=== PATIENT | male | born 2000 | race Caucasian/White ===

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

== ENCOUNTER 2021-12-18 11:25 | Outpatient (CLI) | payer OTHER, SELFPAY ==
--- NOTE | ~2021-12-18 | XR_ITS ---
XR finger 1st LT min 2V DATE: 12/18/2021 11:45 INDICATION: Nodule at base of thumb for 2 months TECHNIQUE: 3 views COMPARISON: None FINDINGS: No fracture or dislocation, periosteal reaction or bone destruction, joint space narrowing, erosive change, subcutaneous emphysema or abnormal soft tissue calcification. IMPRESSION: Negative Reviewed, dictated and finalized at location A. IMPRESSION: Negative
== END 2021-12-18 11:26 | disposition home or self-care (01) ==
LOC: CHSIMG 11:29
PROVIDERS: PCP Family Medicine; Visit Provider Family Medicine
DX: R22.32 Localized swelling, mass and lump, left upper limb (principal)
CPT/HCPCS: 73140

== ENCOUNTER 2021-12-28 08:24 | Outpatient (CLI) | payer OTHER, SELFPAY ==
--- NOTE | ~2021-12-28 | US_ITS ---
EXAMINATION: US right upper quadrant DATE: 12/28/2021 09:51 INDICATION: Elevated liver function tests TECHNIQUE: Multiple grayscale and Doppler ultrasound images of the abdomen were obtained. COMPARISON: None available FINDINGS: Bowel gas obscures visualization of the pancreas. The visualized portions of the pancreas a re unremarkable. The liver is normal with normal echogenicity and echotexture. No surface nodularity. Normal hepatopetal flow in the main portal vein. The gallbladder is normal with no abnormal wall thi ckening, pericholecystic fluid or stones. The normal common bile duct measures 3 mm. There was no son ographic Orellana sign. IMPRESSION: 1. Normal sonographic study of the gallbladder. Reviewed, dictated and finalized at location B.
== END 2021-12-28 08:25 | disposition home or self-care (01) ==
LOC: CHSIMG 08:26
PROVIDERS: PCP Family Medicine; Visit Provider Family Medicine
DX: R74.8 Abnormal levels of other serum enzymes (principal)
CPT/HCPCS: 76705

== ENCOUNTER 2024-10-01 22:16 | Emergency (ER) | payer OTHER, SELFPAY ==
--- NOTE | ~2024-10-01 | CT_ITS ---
EXAMINATION: CT abdomen pelvis w con DATE: 10/01/2024 23:24 INDICATION: EPIGSATRIC PAIN WITH DIARRHEA TECHNIQUE: Computed tomography (CT) of the abdomen and pelvis was performed with 100 mL Omnipaque-350 intravenous contrast. Automated exposure control and iterative reconstruction technique were employe d. The dose-length product was 928.85 mGy-cm. COMPARISON: None. FINDINGS: Lower thorax: Unremarkable Liver: Normal. Biliary/Gallbladder: Gallbladder is normal. No bile duct dilation. Pancreas: No mass or duct dilation. Spleen: Normal. Adrenals:No mass. Kidneys: No suspicious mass, obstructing stone, or hydronephrosis. GI tract: No small or large bowel dilation. Short segment intussusception in the jejunum, without ass ociated mass or other definable lead point. Mild ileal wall edema. Fluid-filled colon. Normal appendi x. Mesentery/Peritoneum: No ascites, mass, or free air. Retroperitoneum: No mass. Pelvis: Pelvic organs are within normal limits. Soft Tissues: Soft tissues and body wall unremarkable. Bones: No acute osseous finding. IMPRESSION: Short segment small bowel intussusception, without a defined lead point, a finding that is typically transient and can be considered physiologic unless associated with symptoms. Ileal wall edema, may reflect infectious or inflammatory enteritis. If there is a history of vasculit is consider ischemia. Fluid-filled colon, as can be seen with diarrheal illness. Reviewed, dictated and finalized at location K. IMPRESSION: Short segment small bowel intussusception, without a defined lead point, a find ing that is typically transient and can be considered physiologic unless associ ated with symptoms. Ileal wall edema, may reflect infectious or inflammatory enteritis. If there is a history of vasculitis consider ischemia. Fluid-filled colon, as can be seen with diarrheal illness.
[2024-10-01 22:17] VITALS: BP 133/99; PULSE 80; RESP 18; TEMP 36.5; O2SAT 94
--- OUTSIDE RECORDS SUMMARY | 2024-10-01 22:17 | XMS_ITS | Clinical Summary ---
Author Organization [facility] Address [address] [place] [address] Care Team Providers Care C.O.D. 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 Gender Identity Not on file Sexual Orientation Not on file Plan of Treatment Health Maintenance Due Date Last Done Comments Annual Physical 2004 HPV Vaccines (1 - Male 3-dos e series) 2016 Meningococcal B Vaccine (1 o f 2 - Standard) 2017 Hepatitis C 2019 DTaP, Tdap and Td Vaccines ( 1 - Tdap) 2020 Hepatitis B Vaccines (1 of 3 - 19+ 3-dose series) 2020 COVID-19 Vaccine ( - 2023-2 5 season) 2024 Meningococcal Vaccine Aged Out No andreas gregg eligible based on patient's age to complete this topic Pneumococcal Vaccine: Pediat rics (0 to 5 Years) and At-Risk Patients (6 to 49 Years) Aged Out No longer eligible b ased on patient's age to complete this topic RSV Immunizations Under 20 Months Aged Out No longer eligible based on patient's age to complete this topic
--- OUTSIDE RECORDS SUMMARY | 2024-10-01 22:17 | XMS_ITS | Patient Health Record ---
Author Organization [facility] Planning Address [address] [address] [address] [place] [address] Support Name Relationship Address Phone Jesse Garcia Guarantor Unknown [phone] Reason For Referral No Information Medications Medication SIG (Take, Route, Frequency, Duration) Notes Start Date End Date Status traZODone HCl 50 MG take 1 tablet (50MG) by oral route every day at bedtime Oral ([facility]) Active Citalopram Hydrobromide 20 MG take 1.5 Tablet (30MG) by oral route every morning Oral ([facility]) Active QUEtiapine Fumarate 200 MG take 1 tablet (200MG) by oral route every day at bedtime Oral ([facility]) Active Orapred 15 MG/5ML take 2 teaspoon by O ral route every 12 hours for 5 days Oral ([facility]) 05/05/2012 Active guanFACINE HCl 1 MG take 1 tablet (1MG) by oral route 3 times every day Oral ([facility]) Active Focalin XR 20 MG take 1 capsule (20MG ) by oral route every day in the morning Oral ([facility]) Active Immunizations Vaccine Route Administration Date Status Comme nts VFC IPV Unknown 2001 Administered Status:Compl eted VFC IPV Unknown 2001 Administered Status:Compl eted VFC IPV Unknown 02/02/2002 Administered Status:Compl eted VFC IPV Unknown 10/25/2006 Administered Status:Compl eted VFC Varivax Unknown 07/24/2002 Administered Status:Comp leted VFC Varivax Unknown 03/23/2011 Administered Status:Comp leted VFC Daptacel Unknown 2001 Administered Status:Com pleted VFC Daptacel Unknown 2001 Administered Status:Com pleted VFC Daptacel Unknown 02/02/2002 Administered Status:Com pleted VFC Daptacel Unknown 07/24/2002 Administered Status:Com pleted VFC Daptacel Unknown 10/25/2006 Administered Status:Com pleted Pneumococcal conjugate PCV 7 Unknown 07/24/2002 Administered Status:Completed Non-VFC MMR II Unknown 07/24/2002 Administered Status:C ompleted Non-VFC MMR II Unknown 10/25/2006 Administered Status:C ompleted Non VFC Engerix B-Peds Unknown 2001 Administered Status:Completed Non VFC Engerix B-Peds Unknown 2001 Administered Status:Completed Non VFC Engerix B-Peds Unknown 07/24/2002 Administered Status:Completed X Hiberix Unknown 2001 Administered Status:Compl eted X Hiberix Unknown 2001 Administered Status:Compl eted X Hiberix Unknown 07/24/2002 Administered Status:Compl eted Plan Of Treatment No Information Medical (General) History Surgical History Surgery Date(Month/Year) Tonsillectomy 2009 Adenoidectomy 2009 Circumcision 2001
[2024-10-01 22:39] LABS: Hematocrit 48.8 % (40.0-54.0); Hemoglobin 16.7 g/dL (14.0-18.0); Mean Corpuscular HGB Conc 34.2 g/dL (32-36); Mean Corpuscular Hemoglobin 28.5 pg (27.0-31.0); Mean Corpuscular Volume 83.3 fL (78.0-102.0); Mean Platelet Volume 10.4 fl (8.7-11.0); Platelet Count Result 382 K/mm3 (150-420); Red Blood Count 5.86 M/mm3 (4.70-6.10); Red Cell Distribution Width 12.5 % (11.6-14.4)
[2024-10-01] MEDS: SODIUM CHLORIDE 0.9% IV 1,000 ML 999 ML IV CONT (22:41)
[2024-10-01] MEDS: PANTOPRAZOLE SODIUM IV 40 MG VIAL IV PUSH (22:42)
[2024-10-01 22:43] LABS: White Blood Count 26.1 K/mm3 (4.8-10.8)
[2024-10-01] MEDS: KETOROLAC 30 MG/ML VIAL (*BKC) IV PUSH (22:43)
[2024-10-01 22:47] LABS: Band Neutrophils Percent 0 % (0-6); Basophils Percent Manual 0 % (0-1); Eosinophils Absolute Manual 0.26 K/mm3 (0.02-0.50); Eosinophils Percent Manual 1 % (1-6); Lymphocytes Absolute Manual 1.56 K/mm3 (1.1-4.5); Lymphocytes Percent Manual 6 % (18-44); Monocytes Absolute Manual 0.78 K/mm3 (0.1-0.90); Monocytes Percent Manual 3 % (3-9); Neutrophils Absolute Manual 23.49 K/mm3 (1.3-6.7); Neutrophils Percent Manual 90 % (46-73); Platelet Estimate Adequate (Adequate)
[2024-10-01 22:52] LABS: Alanine Aminotransferase 43 U/L (16-63); Albumin Level 4.4 g/dL (3.4-5.0); Alkaline Phosphatase 174 U/L (46-116); Anion Gap 11 mmol/L (4-12); Aspartate Amino Transferase 12 U/L (15-37); Bilirubin,Total 0.6 mg/dL (0.00-1.00); Blood Urea Nitrogen 17 mg/dL (7-18); Calcium 9.4 mg/dL (8.5-10.1); Carbon Dioxide 23 mmol/L (21-32); Chloride 106 mmol/L (98-108); Estimated CRCL calculation 148 ml/min; Estimated Glomerular Filt Rate > 60; Glucose 102 mg/dL (70-99); Lipase 29 U/L (16-77); Osmolality Calculated 291 mOsm/kg (285-295); Potassium 3.8 mmol/L (3.5-5.1); Sodium 140 mmol/L (136-145); Total Protein 8.3 g/dL (6.4-8.2)
[2024-10-01 22:55] LABS: Lactic Acid Reflex 1.3 mmol/L (0.4-2.0)
[2024-10-01 22:57] LABS: Add Urine Microscopic? YES; Appearance Urine Clear (Clear); Bilirubin Urine 1+ (Negative); Blood Urine Negative (Negative); Color Urine Brown (Yellow); Glucose Urine UA Negative (Negative); Ketones Urine 1+ (Negative); Leukocyte Esterase Ur Negative LEU/UL (Negative); Nitrate Urine Negative (Negative); Protein Urine 2+ (Negative); Specific Grav Ur >= 1.030 (1.010-1.020); Urobilinogen Urine 0.2 mg/dL (0.2-1.0); pH Urine 5.5 (5.0-8.0)
--- OUTSIDE RECORDS SUMMARY | 2024-10-01 23:01 | XMS_ITS | Clinical Summary ---
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
[2024-10-01 23:02] LABS: Amphetamine Screen Urine Negative (Negative); Barbiturate Screen Urine Negative (Negative); Benzodiazepines Screen Urine Negative (Negative); Cannabinoid Screen Urine Positive (Negative); Cocaine Screen Urine Negative (Negative); Methadone Screen Urine Negative (Negative); Opiate Screen Urine Negative (Negative); Phencyclidine Screen Urine Negative (Negative)
[2024-10-01 23:03] LABS: RBC Urine 0-2 /hpf (0-2); WBC Urine 0-3 /hpf (0-3)
[2024-10-01 23:04] LABS: Bacteria Urine 4+ /hpf; Mucus Urine Few /lpf; Squamous Epithelial Cell Urine None seen /hpf (Few)
--- NOTE | 2024-10-01 23:50 | PC.NURSE ---
Pt resting and on phone at this time, ERP wanting to consult w/ gastro at [place]. Pt c/o feeling somewhat light-headed and loopy . 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 Pt placed on monitor, noted HR 130's. ERP informed, another liter NS ordered, awaiting call back from [facility].
[2024-10-01 23:54] VITALS: PULSE 138
[2024-10-01 23:55] VITALS: BP 109/75; PULSE 138; RESP 20; O2SAT 100
--- NOTE | 2024-10-02 | ED_ITS ---
HPI - Abdominal Pain General Chief Complaint: Abdominal Pain Stated Complaint: not feeling well Time Seen by Provider: 10/01/24 22:25 Source: patient Mode of arrival: ambulatory Limitations: no limitations History of Present Illness HPI narrative: Patient is a 24-year-old male with a significant past medical history that presents today for abdominal pain. His abdominal pain is generalized and started this morning and started to get worse throughout the day he had watery diarrhea. He said for the abdominal pain he decided to take a gummy about an hour before he came to the emergency department. Abdominal pain started getting worse so he came to the emergency department. He has no history of any abdominal surgeries or any abdominal problems in the past. But the abdominal pain is at 8 has had and Hydrea set is generalized but more toward the epigastric area. He also has some nausea a little bit on his well. MD elicited complaint: abdominal pain Onset (ago): hour(s) Pain Consistency: constant Location: diffuse and epigastric Severity: severe Pain scale (0-10): 8 Quality: stabbing and aching Radiation: epigastric Migration to: epigastric Exacerbating factors: eating, bowel movement, vomiting and movement Relieving factors: nothing Associated symptoms: nausea, vomiting and diarrhea Related Data Allergies Allergy/AdvReac Type Severity Reaction Status Date / Time No Known Allergies Allergy Verified 10/01/24 22:31 Review of Systems 2 Review of Systems: All systems reviewed & are unremarkable except as noted in HPI and below Constitutional: Constitutional: Reports as per HPI Eyes: Eyes: Reports no additional eye complaints ENT: Reports system reviewed and no additional complaints, except as documented Cardiovascular: Cardiovascular: Reports no additional cardiovascular complaints Respiratory: Respiratory: Reports no additional respiratory complaints Gastrointestinal: Gastrointestinal: Reports as per HPI, Reports abdominal pain, Reports diarrhea, Reports nausea and Reports vomiting Genitourinary: Genitourinary: Reports no additional male genitourinary complaints Musculoskeletal: Musculoskeletal: Reports no additional musculoskeletal complaints Integumentary/Breasts: Skin/Breast: Reports system reviewed and no additional complaints, except as docu Neurologic: Reports system reviewed and no additional complaints, except as documented Psychiatric: Psychiatric: Reports no additional psychiatric complaints Endocrine: Endocrine: Reports no additional endocrine complaints Hematologic/Lymphatic: Hematologic/Lymphatic: Reports no additional hematologic/lymphatic complaints Allergic/Immunologic: Allergic/Immunologic: Reports no additional allergic/immunologic complaints Exam 2 Const: General: healthy appearing Nutritional Appearance: well nourished Orientation/consciousness: patient oriented x3 HENMT: Head: normal to inspection Ears: external ears normal F nereyda/Nose/Sinus: Normal external nose present Face and sinus: normal facial exam Mouth: Yes Normal oral and palatal mucosa present Eyes: Conjunctivae: conjunctivae normal Pupils: Equal, round and reactive pupils present EOM: EOMs intact bilaterally Direct Ophthalmoscopy: no photophobia Neck: Neck: normal visual inspection Chest: Chest palpation & inspection: normal inspection of the chest Resp: Effort & Inspection: normal respiratory effort Auscultation: clear to auscultation bilaterally Cardio: Rate: regular rate Rhythm: regular rhythm GI: GI Palp: Yes Soft to palpation and Yes Tenderness to palpation present (GI) Back/Spine/Pelvis: Back: no CVA tenderness Skin: General skin exam: normal color Rashes: no rashes Wounds: no wounds Neuro: General: patient oriented x3 Cranial nerves: Yes Nystagmus not present Speech: normal speech Gait exam (Neuro): Normal gait present Extrem: General: normal to inspection Psych: Mental Status: mental status grossly normal Affect: normal affect Attitude: cooperative Course Vital Signs Vital signs: Vital Signs Temperature 97.7 F 10/01/24 22:17 Pulse Rate 80 10/01/24 22:17 Respiratory Rate 18 10/01/24 22:17 Blood Pressure 133/99 H 10/01/24 22:17 Pulse Oximetry 94 10/01/24 22:17 Oxygen Delivery Room Air 10/01/24 22:17 Temperature 97.7 F 10/01/24 22:17 Pulse Rate 120 H 10/02/24 01:20 Respiratory Rate 20 10/02/24 01:20 Blood Pressure 109/79 10/02/24 01:20 Pulse Oximetry 95 10/02/24 01:20 Oxygen Delivery Room Air 10/02/24 01:20 Transfer Transfered to: [place]DM - Abdominal Pain MDM Narrative Medical decision making narrative: The doll seen is very generalized and very painful and his gum he took started to kick in so his heart rate started to go up the blood pressure started to go down. So started him on more IV fluids and gave him IV Zofran. CT scan showedShort segment small bowel intussusception, without a defined lead point, a finding that is typically transient and can be considered physiologic unless associated with symptoms.Ileal wall edema, may reflect infectious or inflammatory enteritis. If there is a history of vasculitis consider ischemia. called over to surgery at [facility] and the surgeon said he will except for consult and now we are just waiting on the hospitalist call us back. If he is accepted there he will be sent there. Will start him on cipro and flagyl for antibiotics For the enteritis. [facility] has accepted the patient. Differential Diagnosis Differential diagnosis: Likely abdominal pain and other (colitis, intussuption ) Medical Records Attestation: I reviewed the patient's medical records. Lab Data Attestation: I reviewed the patient's lab results. 10/01/24 22:34 10/01/24 22:34 Labs: Lab Results 10/01/24 10/01/24 10/01/24 Range/Units 22:25 22:30 22:34 WBC 26.1 H* (4.8-10.8) K/mm3 RBC 5.86 (4.70-6.10) M/mm3 Hgb 16.7 (14.0-18.0) g/dL Hct 48.8 (40.0-54.0) % MCV 83.3 (78.0-102.0) fL MCH 28.5 (27.0-31.0) pg MCHC 34.2 (32-36) g/dL RDW 12.5 (11.6-14.4) % Plt Count 382 (150-420) K/mm3 MPV 10.4 (8.7-11.0) fl Immature Gran % (Auto) Not Reportable Neut % (Auto) Not Reportable Lymph % (Auto) Not Reportable [place] % (Auto) Not Reportable Eos % (Auto) Not Reportable Baso % (Auto) Not Reportable Lymph # (Auto) Not Reportable [place] # (Auto) Not Reportable Eos # (Auto) Not Reportable Baso # (Auto) Not Reportable Abs Immat Gran (auto) Not Reportable Absolute Neuts (auto) Not Reportable Absolute Nucleated RBC Not Reportable Neutrophils % (Manual) 90 H (46-73) % Band Neutrophils % 0 (0-6) % Lymphocytes % (Manual) 6 L (18-44) % Monocytes % (Manual) 3 (3-9) % Eosinophils % (Manual) 1 (1-6) % Basophils % (Manual) 0 (0-1) % Nucleated RBC % Not Reportable Abs Neuts (Manual) 23.49 H (1.3-6.7) K/mm3 Abs Lymphs (Manual) 1.56 (1.1-4.5) K/mm3 Abs Monocytes (Manual) 0.78 (0.1-0.90) K/mm3 Absolute Eos (Manual) 0.26 (0.02-0.50) K/mm3 Abs Basophils (Manual) 0.00 (0-0.1) K/mm3 Platelet Estimate Adequate (Adequate) Schistocytes Not Reportable Sodium 140 (136-145) mmol/L Potassium 3.8 (3.5-5.1) mmol/L Chloride 106 (98-108) mmol/L Carbon Dioxide 23 (21-32) mmol/L Anion Gap 11 (4-12) mmol/L BUN 17 (7-18) mg/dL Creatinine 0.81 (0.70-1.30) mg/dL Estim Creat Clear Calc 148 ml/min Estimated GFR > 60 (59 - ) Glucose 102 H (70-99) mg/dL Calculated Osmolality 291 (285-295) mOsm/kg Lactic Acid 1.3 (0.4-2.0) mmol/L Calcium 9.4 (8.5-10.1) mg/dL Total Bilirubin 0.6 (0.00-1.00) mg/dL AST 12 L (15-37) U/L ALT 43 (16-63) U/L Alkaline Phosphatase 174 H (46-116) U/L Total Protein 8.3 H (6.4-8.2) g/dL Albumin 4.4 (3.4-5.0) g/dL Lipase 29 (16-77) U/L Urine Color Brown A (Yellow) Urine Appearance Clear (Clear) Urine pH 5.5 (5.0-8.0) Ur Specific [place] >= 1.030 H (1.010-1.020) Urine Protein 2+ H (Negative) Urine Glucose (UA) Negative (Negative) Urine Ketones 1+ H (Negative) Ur Blood (Man) Negative (Negative) Urine Nitrate Negative (Negative) Urine Bilirubin 1+ H (Negative) Urine Urobilinogen 0.2 (0.2-1.0) mg/dL Leukocyte Esterase Rfl Negative (Negative) MARIJA/UL Urine RBC 0-2 (0-2) /hpf Urine WBC 0-3 (0-3) /hpf Ur Squamous Epith Cells None seen (Few) /hpf Urine Bacteria 4+ H (None) /hpf Urine Mucus Few H /lpf Urine Opiates Screen Negative (Negative) Urine Methadone Screen Negative (Negative) Ur Barbiturates Screen Negative (Negative) Ur Phencyclidine Scrn Negative (Negative) Ur Amphetamine Screen Negative (Negative) U Benzodiazepines Scrn Negative (Negative) Urine Cocaine Screen Negative (Negative) U Cannabinoids Screen Positive A (Negative) Imaging Data Attestation: I personally reviewed and interpreted this imaging study as follows: Radiologist's impression: ITS Impressions Abdomen/Pelvis CT 10/01/24 23:33 IMPRESSION: Short segment small bowel intussusception, without a defined lead point, a finding that is typically transient and can be considered physiologic unless associated with symptoms. Ileal wall edema, may reflect infectious or inflammatory enteritis. If there is a history of vasculitis consider ischemia. Fluid-filled colon, as can be seen with diarrheal illness. Discharge Plan Discharge Clinical Impression: Intussusception, Enteritis Patient Disposition: Acute Care [facility] Condition: Stable Patient Language: Upper Sorbian Follow-up/Referrals: Tl,MD Gideon [Primary Care Provider] - Time of Disposition: 01:46
[2024-10-02] MEDS: SODIUM CHLORIDE 0.9% IV 1,000 ML 999 ML IV CONT (00:03)
[2024-10-02] MEDS: ONDANSETRON INJ 4 MG/2 ML VIAL IV PUSH (00:05)
[2024-10-02 00:18] VITALS: BP 101/71; PULSE 127; RESP 18; O2SAT 93
[2024-10-02] MEDS: CIPROFLOXACIN 400 MG/D5W 200ML 200 ML 200 MG IVPB (00:47)
[2024-10-02 01:20] VITALS: BP 109/79; PULSE 120; RESP 20; O2SAT 95
--- NOTE | 2024-10-02 01:27 | PC.NURSE ---
Pt sleeping, IV antibx continue to infuse. VSS, awaiting call back from hospitalist at [facility].
[2024-10-02] MEDS: metroNIDAZOLE 500 MG/ISO 100ML 500 MG/100 ML BAG 100 MG IVPB (01:47)
[2024-10-02] MEDS: SODIUM CHLORIDE 0.9% IV 1,000 ML 150 ML IV CONT (01:48)
[2024-10-02 01:52] VITALS: BP 110/75; PULSE 102; RESP 20; TEMP 36.8; O2SAT 100
--- NOTE | 2024-10-02 02:02 | PC.NURSE ---
report give to JOSE Robledo at [place], pt resting and VSS.
[2024-10-02 02:12] VITALS: PULSE 100
[2024-10-02 02:24] VITALS: BP 111/70; PULSE 99; RESP 20; TEMP 36.8; O2SAT 97
--- NOTE | 2024-10-04 14:23 | PC.NURSE ---
Preliminary blood culture report; no growth to date.
--- NOTE | 2024-10-08 14:23 | PC.NURSE ---
FINAL BLOOD CULTURE REPORT; NO GROWTH AFTER 5 DAYS.
== END 2024-10-02 02:25 | disposition short-term general hospital (02) ==
PROVIDERS: Emergency Provider Family Medicine; PCP Family Medicine
DX: K52.9 Noninfective gastroenteritis and colitis, unspecified (principal); K56.1 Intussusception
CPT/HCPCS: 36415; 74177; 80053; 80307; 81001; 83605; 83690; 85025; 87040; 96361; 96365; 96368; 96374; 96375; 99285; J0744; J1836; J1885; J2405; J2470; J7030; Q9967

== ENCOUNTER 2024-10-02 03:07 | Observation (INO) | payer OTHER, SELFPAY ==
[2024-10-02] VITALS (8 sets, daily range): BP systolic 110–126; BP diastolic 75–86; PULSE 95–129; RESP 18–20; TEMP 36.3–36.9; O2SAT 94–100; BMI 38.1
--- NOTE | ~2024-10-02 | XR_ITS ---
EXAMINATION: XR chest 1V portable DATE: 10/02/2024 12:58 INDICATION: Shortness of breath. Tachycardia. TECHNIQUE: AP view of the chest was obtained. COMPARISON: None FINDINGS: The lungs are clear with no focal airspace opacities, pulmonary edema, pleural effusion or pneumothor ax. The cardiomediastinal silhouette is normal. Visualized bones and soft tissues are unremarkable. IMPRESSION: 1. Normal chest radiograph. Reviewed, dictated and finalized at location B. IMPRESSION: 1. Normal chest radiograph.
--- NOTE | ~2024-10-02 | CT_ITS ---
CTA chest PE protocol Ordering provider: Taco Lopez PA-C History: 24 years Male with . elevated d-dimer, tachycardic . Comparison: None. Technique: CT angiogram chest was performed following timed intravenous injection of contrast. Thin s lice axial images and reformatted coronal images were obtained. Three dimensional reformatted images of the chest were also obtained using a [employer] workstation. . Automated exposure control and iterati ve reconstruction technique were employed. The dose-length product was 481.21 mGy-cm. 100 mL Omnipaqu e 350 was given IV. Findings: PULMONARY ARTERIES: No pulmonary embolus. VISUALIZED THORACIC INLET: Normal. MEDIASTINUM: Aorta/coronary arteries: The thoracic aorta is normal. Direct origin of the left vertebral artery fro m the aorta. Heart/other: The heart is not enlarged. Lymph nodes: No mediastinal or hilar adenopathy. LUNGS: No pulmonary nodules or masses. No infiltrates or effusions. No pneumothorax. VISUALIZED UPPER ABDOMEN: the visualized upper abdomen is normal. MUSCULOSKELETAL: Soft tissues: The superficial soft tissues are normal. Bones: Normal spine. IMPRESSION: 1. No pulmonary embolism. 2. No acute cardiopulmonary pathology. Reviewed, dictated and finalized at location A.
--- NOTE | ~2024-10-02 | US_ITS ---
EXAMINATION: US venous doppler [facility] DATE: 10/02/2024 13:45 INDICATION: Elevated d-dimer TECHNIQUE: Grayscale ultrasound images without and with compression and Doppler ultrasound images of the bilateral lower extremity veins were obtained. COMPARISON: None. FINDINGS: The visualized portions of right common femoral vein, profunda (deep) femoral vein, femoral vein, pop liteal vein, peroneal veins, posterior tibial veins, and greater saphenous vein outflow are patent. The visualized portions of left common femoral vein, profunda femoral vein, femoral vein, popliteal v ein, peroneal veins, posterior tibial veins, and greater saphenous vein outflow are patent. IMPRESSION: 1. No deep venous thrombosis. Reviewed, dictated and finalized at location A.
--- OUTSIDE RECORDS SUMMARY | 2024-10-02 03:01 | XMS_ITS | Patient Health Record ---
[facility] Organization [facility] Planning Address [address] [address] [address] [place] [address] Support Name Relationship Address Phone Jesse Garcia Guarantor Unknown [phone] Reason For Referral No Information Medications Medication SIG (Take, Route, Frequency, Duration) Notes Start Date End Date Status traZODone HCl 50 MG take 1 tablet (50MG) by oral route every day at bedtime Oral ([facility]) Active Citalopram Hydrobromide 20 MG take 1.5 Tablet (30MG) by oral route every morning Oral ([facility]) Active QUEtiapine Fumarate 200 MG take 1 tablet (200MG) by oral route every day at bedtime Oral ([facility]) Active Orapred 15 MG/5ML take 2 teaspoon by O ral route every 12 hours for 5 days Oral ([facility]) 05/05/2012 Active guanFACINE HCl 1 MG take 1 tablet (1MG) by oral route 3 times every day Oral ([facility]) Active Focalin XR 20 MG take 1 capsule (20MG ) by oral route every day in the morning Oral ([facility]) Active Immunizations Vaccine Route Administration Date Status Comme nts X Hiberix Unknown 2001 Administered Status:Compl eted X Hiberix Unknown 2001 Administered Status:Compl eted X Hiberix Unknown 07/24/2002 Administered Status:Compl eted VFC Varivax Unknown 07/24/2002 Administered Status:Comp leted VFC Varivax Unknown 03/23/2011 Administered Status:Comp leted VFC IPV Unknown 2001 Administered Status:Compl eted VFC IPV Unknown 2001 Administered Status:Compl eted VFC IPV Unknown 02/02/2002 Administered Status:Compl eted VFC IPV Unknown 10/25/2006 Administered Status:Compl eted VFC Daptacel Unknown 2001 Administered Status:Com pleted [...] VFC Engerix B-Peds Unknown 07/24/2002 Administered Status:Completed Plan Of Treatment No Information Medical (General) History Surgical History Surgery Date(Month/Year) Circumcision 2001 Adenoidectomy 2009 Tonsillectomy 2009
--- OUTSIDE RECORDS SUMMARY | 2024-10-02 03:01 | XMS_ITS | Clinical Summary ---
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
--- NOTE | 2024-10-02 03:03 | ADMGEN ---
This patient, Jesse Garcia, was admitted to Medical Room 344-01. Patient/family oriented to hospital policies and general routines including ID bracelet, bed and alarms, visiting hours, pain management, procedures, bathroom and other care routines, personal items, smoking policy, room service/diet, and visiting hours. Information on how to activate the Rapid Response Team has been discussed. Patient/Family are encouraged to report perceived risks to care and to ask questions if they do not understand what they are told or what they should do.
[2024-10-02] MEDS: SODIUM CHLORIDE 0.9% IV 1,000 ML 125 ML IV CONT ×2 (03:21→19:47)
[2024-10-02] MEDS: metroNIDAZOLE 500 MG/ISO 100ML 500 MG/100 ML BAG 100 MG IVPB ×3 (04:19→20:16)
[2024-10-02] MEDS: MORPHINE SULFATE (*CRX) 2 MG/ML INJ IV PUSH (05:02)
[2024-10-02 05:57] LABS: Basophils Absolute Auto 0.1 K/mm3 (0.0-0.1); Basophils Percent Auto 0.3 % (0.2-1.2); Eosinophils Percent Auto 0.2 % (0-4.4); Hematocrit 42.5 % (42.0-52.0); Hemoglobin 14.3 g/dL (14.0-18.0); Immature Granulocyte Percent A 0.6 % (0-0.5); Lymphocytes Absolute Auto 0.86 K/mm3 (0.9-3.2); Lymphocytes Percent Auto 5.1 % (18.3-44.2); Mean Corpuscular HGB Conc 33.6 g/dl (32-36); Mean Corpuscular Hemoglobin 28.6 pg (26-34); Mean Platelet Volume 10.7 fl (7.4-10.4); Monocytes Absolute Auto 1.3 K/mm3 (0.1-0.6); Neutrophils Absolute Auto 14.5 K/mm3 (1.3-6.7); Neutrophils Percent Auto 85.8 % (45.5-73.1); Platelet Count Result 301 k/mm3 (150-375); Red Cell Distribution Width 12.9 % (11.5-14.5); White Blood Count 16.9 K/mm3 (4.5-10.0)
[2024-10-02 06:11] LABS: Anion Gap 9 mmol/L (4-12); Blood Urea Nitrogen 15 mg/dL (9-20); Calcium 8.3 mg/dL (8.4-10.2); Carbon Dioxide 21 mmol/L (22-30); Chloride 109 mmol/L (98-107); Estimated CRCL calculation 159 ml/min; Estimated Glomerular Filt Rate > 60; Glucose 101 mg/dL (65-110); Potassium 3.9 mmol/L (3.4-5.0); Sodium 139 mmol/L (137-145)
--- NOTE | 2024-10-02 08:20 | P.HP_ITS ---
H&P: HPI History of Present Illness Date/Time: 10/02/24 08:20 Chief Complaint: Abdominal pain Narrative: Patient is a 24-year-old male with past medical history of anxiety and depression who presents to the hospital with abdominal pain that started yesterday morning. He states that the pain started abruptly in the a.m. of 10/01. He describes it as a generalized ache that worsened throughout the day with no alleviating or worsening factors. Also endorses watery diarrhea, no hematochezia. Patient reportedly took a marijuana gummy 1 hour prior to arrival to ED. Denies any prior abdominal surgeries or hospitalizations in the past. Patient describes a as an 8/10. Throughout last night, patient states that the pain became more localized to the epigastric region and more sharp in nature. Patient also denies generalized body aches, ?similar to influenza body aches . Denies any chest pain, shortness shortness of breath, vomiting, or urinary complaints. Denies any known sick contacts or recent travel. Upon admission to the floor, nursing staff reported that the patient had a continued elevated heart rate and wall using a shower he experienced fairly significant shortness of breath. At rest, however, patient does not endorse any shortness of breath. He is still tachycardic at rest but denies any chest pain or heart flutters. No calf tenderness. Low suspicion DVT but chest CTA and bilateral lower extremity Doppler ultrasound ordered. In ED Vitals at Presentation: 97.7F, RR 18, 94% on RA, 133/99 Workup: WBC 26.1, RBC 5.86, Hgb 16.7, no electrolyte imbalances, AST 12, Alk Phos 174, Urinalysis 4+ bacteria, 1+ bilirubin, 2+ protein. Troponin negative. D-dimer elevated at 1.61. EKG showed heart rate 95 BPM, borderline ST T-wave abnormality but was otherwise normal. Abd/pelvis CT showed Short segment small bowel intussusception, without a defined lead point, a finding that is typically transient and can be considered physiologic unless associated with symptoms and Ileal wall edema, may reflect infectious or inflammatory enteritis. Chest XR: Normal chest radiograph. Chest CTA: No pulmonary embolism or acute cardiopulmonary pathology. Review of Systems Review of Systems: All systems reviewed & are unremarkable except as noted in HPI and below PMFSH Family History Family History Mother Asthma Grandparent History of blood clots Diabetes mellitus Hypertension Social History Social History Smoking status: Never smoker Alcohol intake: never Substance use: never Do You Feel Safe in your Home?: Yes Lack of Transportation: No Lack of Food: Never True Current Housing: I Have Housing Concerned About Future Housing: No Difficulty Paying Gas/Electric Bills: No Difficulty Paying for Meds: No Currently Unemployed: No Education: High School Diploma/GED Difficulty w/ Childcare or Family Care: No Spiritual care concerns: No Meds Home Medications and Allergies Home Medications ?Medication ?Instructions ?Recorded ?Confirmed ?Type atorvastatin 40 mg tablet 40 mg PO QPM 10/02/24 10/02/24 History cetirizine 10 mg tablet 10 mg PO DAILY 10/02/24 10/02/24 History citalopram 40 mg tablet 40 mg PO DAILY 10/02/24 10/02/24 History guanfacine 1 mg tablet 1 mg PO Q12H 10/02/24 10/02/24 History lamotrigine 25 mg tablet 50 mg PO QAM 10/02/24 10/02/24 History mirtazapine 15 mg tablet 15 mg PO HS 10/02/24 10/02/24 History omeprazole 20 mg capsule,delayed 20 mg PO QAM 10/02/24 10/02/24 History release quetiapine 100 mg tablet 100 mg PO HS 10/02/24 10/02/24 History Allergies Allergy/AdvReac Type Severity Reaction Status Date / Time No Known Allergies Allergy Verified 10/01/24 22:31 Vital Signs Vital Signs - 24 hr 10/02/24 03:25 10/02/24 04:00 10/02/24 04:00 Temperature 98 F Pulse Rate 106 H 115 H Respiratory Rate 20 Blood Pressure 126/75 Pulse Oximetry 100 Oxygen Delivery Room Air Exam Narrative: Gen - well appearing male in no acute respiratory distress who is nontoxic- appearing lying semi recumbent in bed HEENT - normocephalic. Atraumatic. Pupils equal round and reactive. Sclera clear and anicteric. Nares patent. Oropharynx was clear. Moist mucous membranes. Tongue was midline. Neck - neck was supple. No dominant adenopathy, thyromegaly or masses. Chest - lungs are clear to auscultation bilaterally. No wheezes or crackles. CV - Tachycardic. S1-S2. No murmurs gallops or rubs. Abd - abdomen was soft. Nontender. Nondistended. Positive bowel sounds. No organomegaly or masses. Ext - no clubbing, cyanosis or edema. 2+ DP pulses bilaterally. Neuro - patient is alert and oriented x4. Strength is 5/5 in both upper and lower extremities. Speech is clear. Psych - normal mood and affect. Patient is pleasant and cooperative. Skin - warm and dry. No rashes noted. H&P: Results Labs Labs: Short CBC 10/02/24 Range/Units 05:36 WBC 16.9 H (4.5-10.0) K/mm3 Hgb 14.3 (14.0-18.0) g/dL Hct 42.5 (42.0-52.0) % Plt Count 301 (150-375) k/mm3 BMP 10/02/24 05:36 Sodium 139 Potassium 3.9 Chloride 109 H Carbon Dioxide 21 L BUN 15 Creatinine 0.74 Glucose 101 Calcium 8.3 L Assessment and Plan Assessment and plan (1) Intussusception: Code(s): K56.1 - Intussusception Status: Acute Assessment and Plan: * Monitor I&Os, vital signs, neuro status and patient is a fall risk * Monitor serum electrolytes and CBC * Place NG tube for non operative management, NG tube to low intermittent suction * Gentle IV fluid resuscitation given the patient's NPO status * P.r.n. Anti emetics, avoid reglan * General surgery consult to further evaluate small bowel obstruction if the patient needs surgical intervention or fails to improve with NG decompression. (2) Sepsis: Code(s): A41.9 - Sepsis, unspecified organism Status: Acute Assessment and Plan: Meets SIRS criteria: WBC 16.9, HR 106 - lactic acid: 1.3 - suspected source: Unknown etiology - blood cultures drawn on - UA: 4+ bacteria, 1+ bilirubin, 1+ ketones, 2+ protein - Urine culture pending - CXR: Normal chest radiograph - Started on Rocephin - DVT rule out for tachycardia, Leukocytosis could be secondary to Abd/Pelvis CT findings (3) UTI (urinary tract infection): Code(s): N39.0 - Urinary tract infection, site not specified Status: Acute Assessment and Plan: - UA: 4+ bacteria, 1+ bilirubin, 1+ ketones, 2+ protein - UC obtained on 10/02 - No previous micro - started on Rocephin - Low suspicion UTI, no urinary symptoms - Pending negative cultures, can eventually d/c abx (4) Enteritis: Code(s): K52.9 - Noninfective gastroenteritis and colitis, unspecified Status: Acute Assessment and Plan: * Continue supportive care and antibiotics * Likely cause of diarrhea/generalized fatigue * Viral panel pending at this time (5) Tachycardia: Code(s): R00.0 - Tachycardia, unspecified Status: Acute Assessment and Plan: * EKG: NSR, 95 bpm, QRS 17, IN 154 * Chest XR: Chest radiograph * Chest CTA: No pulmonary embolism, no acute cardiopulmonary pathology * D-dimer: 1.61 * Venous Doppler US BI pending (6) Anxiety and depression: Code(s): F41.9 - Anxiety disorder, unspecified; F32.A - Depression, unspecified Status: Acute Assessment and Plan: - Chronic - Continue at home medications Quality VTE Prophylaxis VTE prophylaxis: pharmacologic ordered
[2024-10-02] MEDS: ENOXAPARIN 40 MG/0.4 ML SYRINGE SUB-Q (09:28)
[2024-10-02] MEDS: FAMOTIDINE 20 MG/2 ML VIAL IV PUSH ×2 (09:29→20:16)
--- NOTE | 2024-10-02 11:37 | ECG_ITS ---
Test Date: 2024-10-02 12:39:25 Measurements Intervals Jones Rate: 95 P: 37 MI: 154 QRS: 17 QRSD: 87 T: 12 QT: 338 QTc: 427 Interpretive Statements SINUS RHYTHM BORDERLINE ST-T WAVE ABNORMALITY- INFERIOR LEADS BASELINE ARTIFACT- V2 BORDERLINE ECG No previous ECG available for comparison Electronically Signed On 10-02-2024 12:50:13 CDT by Miles Fermin D.O.
[2024-10-02 12:14] LABS: D Dimer 1.61 ug/mL (<0.48)
[2024-10-02 12:19] LABS: Troponin I < 0.012 ng/mL (0.000-0.034)
--- NOTE | 2024-10-02 13:22 | P.CONGS_ITS ---
Assessment and Plan Assessment and plan (1) Intussusception: Code(s): K56.1 - Intussusception Status: Acute Assessment and Plan: This is the reason for our consultation. CT suggested findings of a small bowel intussusception with no lead point identified. No findings of an obstruction or dilated small bowel proximally. He is not having any obstructive symptoms and his pain has actually significantly improved. His abdominal exam is benign. This is likely a transient finding and his symptoms are more likely related to gastroenteritis or some type of diarrheal illness. Okay to advance diet as tolerated from our standpoint. If he begins to have recurrent abdominal pain or obstructive symptoms, we could reconsider further evaluating with a small-bowel follow-through or repeating his CT scan of the abdomen and pelvis. Will continue to follow with serial abdominal exams and labs. (2) Enteritis: Code(s): K52.9 - Noninfective gastroenteritis and colitis, unspecified Status: Acute Assessment and Plan: Continue supportive care, antibiotics. Also complaining of generalized fatigue, joint pain, body aches. Will add viral panel as well. (3) Tachycardia: Code(s): R00.0 - Tachycardia, unspecified Status: Acute Assessment and Plan: Substernal chest pain with tachycardia. Denies history of tachycardia and was recently seen by his PCP a few weeks ago to recheck cholesterol labs. D-dimer elevated, CTA chest ordered and pending. Management per Hospitalist. (4) Substernal pain: Code(s): R07.2 - Precordial pain Status: Acute Assessment and Plan: EKG without ischemic changes. Management per Hospitalist. Plan I have discussed the patient's case and plan of care with Dr. Nelson. History of Present Illness Consult details Consult date: 10/02/24 Reason for consult: other (Intussusception) Requesting physician: Lola Cano DO Narrative: This is a 24-year-old man who we have been asked to see in surgical consultation for intussusception. He presented to [place] ED overnight with complaints of abdominal pain x2 days. He reports 2 days ago developing severe diarrhea. He reports having multiple liquid bowel movement with no blood noted in his stool. He had generalized upper abdominal pain that was initially cramping in nature and felt like gas pains. His diarrhea persisted through the day and he developed more severe abdominal pain yesterday. He denies any nausea or vomiting. Due to his persistent pain, he came into the ED for evaluation. He denies ever having this pain in the past. Labs showed white blood cell count 26,100, lactic acid 1.3. UA showed dark concentrated urine, but negative for UTI. Drug screen was positive for cannabinoids. CT scan of the abdomen and pelvis showed a short segment small bowel intussusception without a defined lead point, of which is typically transient and can be considered physiologic unless associated with symptoms. Also seen is ileal wall edema which may reflect infectious or inflammatory enteritis, and a fluid-filled colon that is seen with diarrheal illness. He was directly transferred to [facility] and our service was consulted. He was admitted to the hospitalist service. Since admission, the patient remains tachycardic with a heart rate 110-130s. He is now seen on the medical floor. He reports his abdominal pain yesterday was actually in the substernal area and possibly upper epigastric area. He reports his pain has subsided significantly today. He still denies any nausea or vomiting. He has had multiple loose bowel movements since admission. He reports his stool seen slightly more formed today. Still no blood in his stool. White blood cell count is down to 16,000. Nursing also reports he became short of breath when walking into the bathroom, which is a new finding for him. He also took a shower today after having some stool incontinence and had dizziness in the shower. He did not fall or have a syncopal episode. He also reports having an onset of multiple areas of joint pain and myalgias this morning. He has been clammy and his mom reports appearing diaphoretic, but has not had a fever. No close contacts with similar symptoms. He has been tolerating a clear liquid diet well without any issues. Review of Systems 2 Review of Systems: All systems reviewed & are unremarkable except as noted in HPI and below [facility] Family History Family History Mother Asthma Grandparent History of blood clots Diabetes mellitus Hypertension Social History Social History Smoking status: Never smoker Alcohol intake: never Substance use: never Do You Feel Safe in your Home?: Yes Lack of Transportation: No Lack of Food: Never True Current Housing: I Have Housing Concerned About Future Housing: No Difficulty Paying Gas/Electric Bills: No Difficulty Paying for Meds: No Currently Unemployed: No Education: High School Diploma/GED Difficulty w/ Childcare or Family Care: No Spiritual care concerns: No Meds Home Medications and Allergies Home Medications ?Medication ?Instructions ?Recorded ?Confirmed ?Type atorvastatin 40 mg tablet 40 mg PO QPM 10/02/24 10/02/24 History cetirizine 10 mg tablet 10 mg PO DAILY 10/02/24 10/02/24 History citalopram 40 mg tablet 40 mg PO DAILY 10/02/24 10/02/24 History guanfacine 1 mg tablet 1 mg PO Q12H 10/02/24 10/02/24 History lamotrigine 25 mg tablet 50 mg PO [facility] 10/02/24 10/02/24 History mirtazapine 15 mg tablet 15 mg PO HS 10/02/24 10/02/24 History omeprazole 20 mg capsule,delayed 20 mg PO [facility] 10/02/24 10/02/24 History release quetiapine 100 mg tablet 100 mg PO HS 10/02/24 10/02/24 History Allergies Allergy/AdvReac Type Severity Reaction Status Date / Time No Known Allergies Allergy Verified 10/01/24 22:31 Vital Signs Vital Signs - 24 hr 10/02/24 03:25 10/02/24 04:00 10/02/24 04:00 Temperature 98 F Pulse Rate 106 H 115 H Respiratory Rate 20 Blood Pressure 126/75 Pulse Oximetry 100 Oxygen Delivery Room Air 10/02/24 09:32 10/02/24 12:11 Temperature 98.4 F 97.8 F Pulse Rate 122 H 106 H Respiratory Rate 18 18 Blood Pressure 116/76 111/76 Pulse Oximetry 94 94 Oxygen Delivery Exam 2 Const: General: no acute distress and awake Nutritional Appearance: o verweight Orientation/consciousness: patient oriented x3 HENMT: Head: normocephalic and atraumatic Ears: hearing grossly normal bilaterally Mouth: Yes moist mucous membranes Eyes: General: appearance normal, both eyes and all related structures P upils: Equal, round and reactive pupils present Neck: Neck: normal visual inspection and full ROM Resp: Effort & Inspection: no respiratory distress Auscultation: clear to auscultation bilaterally Cardio: Rate: tachycardic Rhythm: regular rhythm Peripheral pulses: P eripheral pulses 2+ throughout GI: Inspection: non-distended and no scars GI Palp: Yes Soft to palpation, Yes Tenderness to palpation present (GI) (mild epigastric tenderness), No Guarding due to palpation present (GI), Yes No hepatosplenomegaly present, No Hernia present and No Rebound tenderness present Percussion: Yes normal to percussion Auscultation: normal bowel sounds Skin: General skin exam: normal color Neuro: General: moves all extremities and no focal motor deficits Speech: n ormal speech Motor exam (neuro): 5/5 motor strength present throughout Extrem: General: normal to inspection and no edema Psych: Mental Status: mental status grossly normal Attitude: cooperative Insight: Good insight present (Psych) Judgement: Good judgement present (Psych) Results Labs 10/02/24 05:36 10/02/24 05:36 Labs: Abnormal lab results 10/02/24 10/02/24 Range/Units 05:36 11:52 WBC 16.9 H (4.5-10.0) K/mm3 MPV 10.7 H (7.4-10.4) fl Immature Gran % (Auto) 0.6 H (0-0.5) % Neut % (Auto) 85.8 H (45.5-73.1) % Lymph % (Auto) 5.1 L (18.3-44.2) % Lymph # (Auto) 0.86 L (0.9-3.2) K/mm3 Becker # (Auto) 1.3 H (0.1-0.6) K/mm3 Abs Immat Gran (auto) 0.10 H (0.00-0.031) K/mm3 Absolute Neuts (auto) 14.5 H (1.3-6.7) K/mm3 D-Dimer 1.61 H (<0.48) ug/mL Chloride 109 H (98-107) mmol/L Carbon Dioxide 21 L (22-30) mmol/L Calcium 8.3 L (8.4-10.2) mg/dL Diabetes panel 10/02/24 Range/Units 05:36 Sodium 139 (137-145) mmol/L Potassium 3.9 (3.4-5.0) mmol/L Chloride 109 H (98-107) mmol/L Carbon Dioxide 21 L (22-30) mmol/L BUN 15 (9-20) mg/dL Creatinine 0.74 (0.7-1.3) mg/dL Glucose 101 (65-110) mg/dL Calcium 8.3 L (8.4-10.2) mg/dL Calcium panel 10/02/24 Range/Units 05:36 Calcium 8.3 L (8.4-10.2) mg/dL Pituitary panel 10/02/24 Range/Units 05:36 Sodium 139 (137-145) mmol/L Potassium 3.9 (3.4-5.0) mmol/L Chloride 109 H (98-107) mmol/L Carbon Dioxide 21 L (22-30) mmol/L BUN 15 (9-20) mg/dL Creatinine 0.74 (0.7-1.3) mg/dL Glucose 101 (65-110) mg/dL Calcium 8.3 L (8.4-10.2) mg/dL Adrenal panel 10/02/24 Range/Units 05:36 Sodium 139 (137-145) mmol/L Potassium 3.9 (3.4-5.0) mmol/L Chloride 109 H (98-107) mmol/L Carbon Dioxide 21 L (22-30) mmol/L BUN 15 (9-20) mg/dL Creatinine 0.74 (0.7-1.3) mg/dL Glucose 101 (65-110) mg/dL Calcium 8.3 L (8.4-10.2) mg/dL All other labs normal. Imaging Additional studies: ITS Impressions Chest X-Ray 10/02/24 13:01 IMPRESSION: 1. Normal chest radiograph.
[2024-10-02] MEDS: ATORVASTATIN 40 MG TABLET PO (18:16)
[2024-10-02 19:00] LABS: Influenza A QL RT-PCR Negative (Negative); Influenza B QL RT-PCR Negative (Negative); SARS-CoV-2 RNA PCR Negative (Negative)
[2024-10-02] MEDS: QUEtiapine FUMARATE 100 MG TABLET PO (21:54)
[2024-10-02] MEDS: MIRTAZAPINE 15 MG TABLET PO (21:54)
[2024-10-02] MEDS: guanFACINE HCL 1 MG TABLET PO (21:54)
[2024-10-03] VITALS: PULSE 91
[2024-10-03 02:13] VITALS: BP 117/76; PULSE 77; RESP 18; TEMP 36.1; O2SAT 96
[2024-10-03 04:00] VITALS: PULSE 80
[2024-10-03] MEDS: metroNIDAZOLE 500 MG/ISO 100ML 500 MG/100 ML BAG 100 MG IVPB ×2 (04:12→12:31)
[2024-10-03] MEDS: SODIUM CHLORIDE 0.9% IV 1,000 ML 125 ML IV CONT (04:13)
[2024-10-03 06:00] VITALS: BP 145/86; PULSE 78; RESP 18; TEMP 36.4; O2SAT 97
[2024-10-03 08:05] VITALS: PULSE 85
[2024-10-03] MEDS: PANTOPRAZOLE 40 MG TABLET PO (08:13)
[2024-10-03] MEDS: LORATADINE 10 MG TABLET PO (08:14)
[2024-10-03] MEDS: CITALOPRAM HYDROBROMIDE 20 MG TABLET 40 MG PO (08:14)
[2024-10-03] MEDS: lamoTRIgine 50 MG TABLET PO (08:14)
[2024-10-03] MEDS: FAMOTIDINE 20 MG/2 ML VIAL IV PUSH (08:14)
[2024-10-03] MEDS: guanFACINE HCL 1 MG TABLET PO (08:14)
[2024-10-03] MEDS: ENOXAPARIN 40 MG/0.4 ML SYRINGE SUB-Q (08:14)
--- NOTE | 2024-10-03 10:41 | P.PNIM_ITS ---
Progress Note: A&P Assessment and Plan (1) Sepsis: Code(s): A41.9 - Sepsis, unspecified organism Status: Acute Assessment and Plan: Meets SIRS criteria: WBC 16.9, HR 106 - lactic acid: 1.3 - suspected source: Unknown etiology - blood cultures no growth today - UA: 4+ bacteria, 1+ bilirubin, 1+ ketones, 2+ protein - Urine culture no growth today - CXR: Normal chest radiograph - Started on Rocephin - DVT rule out for tachycardia, Leukocytosis could be secondary to Abd/Pelvis CT findings Per general surgery sounds like gastroenteritis (2) UTI (urinary tract infection): Code(s): N39.0 - Urinary tract infection, site not specified Status: Acute Assessment and Plan: - UA: 4+ bacteria, 1+ bilirubin, 1+ ketones, 2+ protein - UC obtained on 10/02 - No previous micro - started on Rocephin - Low suspicion UTI, no urinary symptoms - Pending negative cultures, can eventually d/c abx (3) Tachycardia: Code(s): R00.0 - Tachycardia, unspecified Status: Acute Assessment and Plan: * EKG: NSR, 95 bpm, QRS 17, [place] 154 * Chest XR: Chest radiograph * Chest CTA: No pulmonary embolism, no acute cardiopulmonary pathology * D-dimer: 1.61 * Venous Doppler US BI pending (4) Anxiety and depression: Code(s): F41.9 - Anxiety disorder, unspecified; F32.A - Depression, unspecified Status: Acute Assessment and Plan: - Chronic - Continue at home medications Subjective Date/time seen: 10/03/24 10:41 Interval history: 24-year-old male with past medical history of anxiety and depression who presents to the hospital with abdominal pain that started yesterday morning and have intussusception. Review of Systems Review of Systems: All systems reviewed & are unremarkable except as noted in HPI and below Exam Narrative: Gen - well appearing male in no acute respiratory distress who is nontoxic- appearing lying semi recumbent in bed HEENT - normocephalic. Atraumatic. Pupils equal round and reactive. Sclera clear and anicteric. Nares patent. Oropharynx was clear. Moist mucous membranes. Tongue was midline. Neck - neck was supple. No dominant adenopathy, thyromegaly or masses. Chest - lungs are clear to auscultation bilaterally. No wheezes or crackles. CV - Tachycardic. S1-S2. No murmurs gallops or rubs. Abd - abdomen was soft. Nontender. Nondistended. Positive bowel sounds. No organomegaly or masses. Ext - no clubbing, cyanosis or edema. 2+ DP pulses bilaterally. Neuro - patient is alert and oriented x4. Strength is 5/5 in both upper and lower extremities. Speech is clear. Psych - normal mood and affect. Patient is pleasant and cooperative. Skin - warm and dry. No rashes noted. Objective Data Vital Signs Vital Signs: Vital Signs - 24 hr 10/02/24 12:00 10/02/24 12:11 10/02/24 16:00 Temperature 97.8 F 98.4 F Pulse Rate 101 H 106 H 103 H Respiratory Rate 18 18 Blood Pressure 111/76 110/86 Pulse Oximetry 94 96 Oxygen Delivery 10/02/24 16:00 10/02/24 20:00 10/02/24 20:00 Temperature Pulse Rate 129 H 95 Respiratory Rate Blood Pressure Pulse Oximetry Oxygen Delivery Room Air 10/02/24 22:39 10/03/24 00:00 10/03/24 02:13 Temperature 97.4 F L 97.0 F L Pulse Rate 97 91 77 Respiratory Rate 18 18 Blood Pressure 121/78 117/76 Pulse Oximetry 97 96 Oxygen Delivery 10/03/24 04:00 10/03/24 06:00 Temperature 97.5 F L Pulse Rate 80 78 Respiratory Rate 18 Blood Pressure 145/86 H Pulse Oximetry 97 Oxygen Delivery Intake/Output Intake/Output: Intake & Output 09/30/24 10/01/24 10/02/24 10/03/24 23:59 23:59 23:59 23:59 Intake Total 2500 1850 Balance 2500 1850 Meds/Results Medications: Active Medications Generic Name Dose Route Start Last Admin Trade Name Freq PRN Reason Stop Dose Admin Acetaminophen 650 mg 10/02/24 03:10 Acetaminophen 325 Mg Tablet PO Q4H PRN Mild Pain (1-3) or Fever Atorvastatin Calcium 40 mg 10/02/24 18:00 10/02/24 18:16 Atorvastatin 40 Mg Tablet PO 40 mg QPM MARISOL Administration Citalopram Hydrobromide 40 mg 10/03/24 09:00 10/03/24 08:14 Citalopram Hydrobromide 20 Mg Tablet PO 40 mg DAILY MARISOL Administration Enoxaparin Sodium 40 mg 10/02/24 09:00 10/03/24 08:14 Enoxaparin 40 Mg/0.4 Ml Syringe SUB-Q 40 mg DAILY MARISOL Administration Famotidine 20 mg 10/02/24 09:00 10/03/24 08:14 Famotidine 20 Mg/2 Ml Vial IV PUSH 20 mg Q12HR MARISOL Administration Guanfacine HCl 1 mg 10/02/24 21:00 10/03/24 08:14 Guanfacine Hcl 1 Mg Tablet PO 1 mg Q12H MARISOL Administration Sodium Chloride 1,000 mls @ 125 mls/hr 10/02/24 03:10 10/03/24 04:13 Normal Saline Iv IV CONT 125 mls/hr .Q8H MARISOL Administration Ceftriaxone Sodium 1 gm in 50 mls @ 100 mls/hr 10/02/24 03:00 10/03/24 03:49 Rocephin 1 Gm/Ns 50 Ml IVPB Infused Q24H MARISOL Infusion Metronidazole 500 mg in 100 mls @ 100 mls/hr 10/02/24 04:00 10/03/24 05:11 Flagyl 500 Mg/Iso Soln 100 Ml IVPB Infused Q8H MARISOL Infusion Lamotrigine 50 mg 10/03/24 09:00 10/03/24 08:14 Lamotrigine 50 Mg Tablet PO 50 mg QAM MARISOL Administration Loratadine 10 mg 10/03/24 09:00 10/03/24 08:14 Loratadine 10 Mg Tablet PO 10 mg DAILY MARISOL Administration Mirtazapine 15 mg 10/02/24 21:00 10/02/24 21:54 Mirtazapine 15 Mg Tablet PO 15 mg HS MARISOL Administration Morphine Sulfate 2 mg 10/02/24 03:10 10/02/24 05:02 Morphine Sulfate (*Crx) 2 Mg/Ml Inj IV PUSH 2 mg Q4H PRN Administration Pain Rated 7-10 Ondansetron HCl 4 mg 10/02/24 03:10 Ondansetron Inj 4 Mg/2 Ml Vial IV PUSH Q6H PRN Nausea And Vomiting Pantoprazole Sodium 40 mg 10/03/24 09:00 10/03/24 08:13 Pantoprazole 40 Mg Tablet PO 40 mg QAM MARISOL Administration Quetiapine Fumarate 100 mg 10/02/24 21:00 10/02/24 21:54 Quetiapine Fumarate 100 Mg Tablet PO 100 mg HS MARISOL Administration Radiology Results: ITS Impressions Chest X-Ray 10/02/24 13:01 IMPRESSION: 1. Normal chest radiograph. Chest CTA 10/02/24 13:30 IMPRESSION: 1. No pulmonary embolism. 2. No acute cardiopulmonary pathology. Venous Doppler Study 10/02/24 15:09 IMPRESSION: 1. No deep venous thrombosis. Labs Labs: Laboratory Results - last 24 hr 10/02/24 10/02/24 11:52 18:18 D-Dimer 1.61 H Troponin I < 0.012 Influenza A (RT-PCR) Negative Influenza B (RT-PCR) Negative SARS-CoV-2 RNA (RT-PCR) Negative Quality VTE Prophylaxis VTE prophylaxis: pharmacologic ordered
--- NOTE | 2024-10-03 11:03 | PM.PNGS ---
Progress Note: A&P Assessment and Plan (1) Enteritis: Code(s): K52.9 - Noninfective gastroenteritis and colitis, unspecified Status: Inactive Assessment and Plan: exam improved and now benign, ADAT, cont supportive care of likely viral syndrome, no acute surgical issues (2) Intussusception: Code(s): K56.1 - Intussusception Status: Inactive Assessment and Plan: Likely incidental finding, exam completely benign, we will sign off, call with questions or issues Subjective Subjective Date/Time Seen: 10/03/24 11:03 Interval history: feels much better, no further pain, no diarrhea Review of Systems Review of Systems: All systems reviewed & are unremarkable except as noted in HPI and below Exam Const: General: cooperative, comfortable and no acute distress Resp: Auscultation: clear to auscultation bilaterally Cardio: Rate: regular rate Rhythm: regular rhythm GI: Inspection: normal to inspection and non-distended GI Palp: No abdominal tenderness and Yes Soft to palpation Objective Data Vital Signs Vital Signs: Vital Signs - 24 hr 10/02/24 12:00 10/02/24 12:11 10/02/24 16:00 Temperature 36.6 C 36.9 C Pulse Rate 101 H 106 H 103 H Respiratory Rate 18 18 Blood Pressure 111/76 110/86 Pulse Oximetry 94 96 Oxygen Delivery 10/02/24 16:00 10/02/24 20:00 10/02/24 20:00 Temperature Pulse Rate 129 H 95 Respiratory Rate Blood Pressure Pulse Oximetry Oxygen Delivery Room Air 10/02/24 22:39 10/03/24 00:00 10/03/24 02:13 Temperature 36.3 C L 36.1 C L Pulse Rate 97 91 77 Respiratory Rate 18 18 Blood Pressure 121/78 117/76 Pulse Oximetry 97 96 Oxygen Delivery 10/03/24 04:00 10/03/24 06:00 Temperature 36.4 C L Pulse Rate 80 78 Respiratory Rate 18 Blood Pressure 145/86 H Pulse Oximetry 97 Oxygen Delivery Intake/Output Intake/Output: Intake & Output 09/30/24 10/01/24 10/02/24 10/03/24 23:59 23:59 23:59 23:59 Intake Total 2500 1850 Balance 2500 1850 Meds/Results Medications: Active Medications Generic Name Dose Route Start Last Admin Trade Name Freq PRN Reason Stop Dose Admin Acetaminophen 650 mg 10/02/24 03:10 Acetaminophen 325 Mg Tablet PO Q4H PRN Mild Pain (1-3) or Fever Atorvastatin Calcium 40 mg 10/02/24 18:00 10/02/24 18:16 Atorvastatin 40 Mg Tablet PO 40 mg QPM MARISOL Administration Citalopram Hydrobromide 40 mg 10/03/24 09:00 10/03/24 08:14 Citalopram Hydrobromide 20 Mg Tablet PO 40 mg DAILY MARISOL Administration Enoxaparin Sodium 40 mg 10/02/24 09:00 10/03/24 08:14 Enoxaparin 40 Mg/0.4 Ml Syringe SUB-Q 40 mg DAILY MARISOL Administration Famotidine 20 mg 10/02/24 09:00 10/03/24 08:14 Famotidine 20 Mg/2 Ml Vial IV PUSH 20 mg Q12HR MARISOL Administration Guanfacine HCl 1 mg 10/02/24 21:00 10/03/24 08:14 Guanfacine Hcl 1 Mg Tablet PO 1 mg Q12H MARISOL Administration Ceftriaxone Sodium 1 gm in 50 mls @ 100 mls/hr 10/02/24 03:00 10/03/24 03:49 Rocephin 1 Gm/Ns 50 Ml IVPB Infused Q24H MARISOL Infusion Metronidazole 500 mg in 100 mls @ 100 mls/hr 10/02/24 04:00 10/03/24 05:11 Flagyl 500 Mg/Iso Soln 100 Ml IVPB Infused Q8H MARISOL Infusion Lamotrigine 50 mg 10/03/24 09:00 10/03/24 08:14 Lamotrigine 50 Mg Tablet PO 50 mg QAM MARISOL Administration Loratadine 10 mg 10/03/24 09:00 10/03/24 08:14 Loratadine 10 Mg Tablet PO 10 mg DAILY MARISOL Administration Mirtazapine 15 mg 10/02/24 21:00 10/02/24 21:54 Mirtazapine 15 Mg Tablet PO 15 mg HS MARISOL Administration Morphine Sulfate 2 mg 10/02/24 03:10 10/02/24 05:02 Morphine Sulfate (*Crx) 2 Mg/Ml Inj IV PUSH 2 mg Q4H PRN Administration Pain Rated 7-10 Ondansetron HCl 4 mg 10/02/24 03:10 Ondansetron Inj 4 Mg/2 Ml Vial IV PUSH Q6H PRN Nausea And Vomiting Pantoprazole Sodium 40 mg 10/03/24 09:00 10/03/24 08:13 Pantoprazole 40 Mg Tablet PO 40 mg QAM MARISOL Administration Quetiapine Fumarate 100 mg 10/02/24 21:00 10/02/24 21:54 Quetiapine Fumarate 100 Mg Tablet PO 100 mg HS MARISOL Administration Radiology Results: ITS Impressions Chest X-Ray 10/02/24 13:01 IMPRESSION: 1. Normal chest radiograph. Chest CTA 10/02/24 13:30 IMPRESSION: 1. No pulmonary embolism. 2. No acute cardiopulmonary pathology. Venous Doppler Study 10/02/24 15:09 IMPRESSION: 1. No deep venous thrombosis. Labs Labs: Laboratory Results - last 24 hr 10/02/24 10/02/24 11:52 18:18 D-Dimer 1.61 H Troponin I < 0.012 Influenza A (RT-PCR) Negative Influenza B (RT-PCR) Negative SARS-CoV-2 RNA (RT-PCR) Negative
[2024-10-03 14:03] LABS: Hematocrit 39.6 % (42.0-52.0); Hemoglobin 13.1 g/dL (14.0-18.0); Mean Corpuscular HGB Conc 33.1 g/dl (32-36); Mean Corpuscular Hemoglobin 28.5 pg (26-34); Mean Corpuscular Volume 86.1 fl (80-100); Mean Platelet Volume 10.4 fl (7.4-10.4); Platelet Count Result 290 k/mm3 (150-375); Red Cell Distribution Width 13.2 % (11.5-14.5); White Blood Count 8.3 K/mm3 (4.5-10.0)
--- NOTE | 2024-10-03 15:43 | P.DS_ITS ---
DS: Admitting Diagnosis Discharge Date 10/03/24 Admitting Diagnosis Viral gastroenteritis DS: Discharge Diagnosis Discharge Diagnosis (1) Sepsis: Code(s): A41.9 - Sepsis, unspecified organism Status: Acute Assessment and Plan: Meets SIRS criteria: WBC 16.9, HR 106 - lactic acid: 1.3 - suspected source: Unknown etiology - blood cultures no growth today - UA: 4+ bacteria, 1+ bilirubin, 1+ ketones, 2+ protein - Urine culture no growth today - CXR: Normal chest radiograph - Started on Rocephin - DVT rule out for tachycardia, Leukocytosis could be secondary to Abd/Pelvis CT findings Per general surgery sounds like gastroenteritis (2) UTI (urinary tract infection): Code(s): N39.0 - Urinary tract infection, site not specified Status: Acute Assessment and Plan: - UA: 4+ bacteria, 1+ bilirubin, 1+ ketones, 2+ protein - UC obtained on 10/02 - No previous micro - started on Rocephin - Low suspicion UTI, no urinary symptoms - Pending negative cultures, can eventually d/c abx (3) Tachycardia: Code(s): R00.0 - Tachycardia, unspecified Status: Acute Assessment and Plan: * EKG: NSR, 95 bpm, QRS 17, [place] 154 * Chest XR: Chest radiograph * Chest CTA: No pulmonary embolism, no acute cardiopulmonary pathology * D-dimer: 1.61 * Venous Doppler US BI pending (4) Anxiety and depression: Code(s): F41.9 - Anxiety disorder, unspecified; F32.A - Depression, unspecified Status: Acute Assessment and Plan: - Chronic - Continue at home medications DS: Summary Hospital Course Reason for hospitalization: Viral gastroenteritis Hospital Course: Patient is a 24-year-old male with past medical history of anxiety and depression who presents to the hospital with abdominal pain that started yesterday morning. He states that the pain started abruptly in the a.m. of 10/01. See HPI for details. Abd/pelvis CT showed Short segment small bowel intussusception, without a def ined lead point, a finding that is typically transient and can be considered physiologic unless associated with symptoms and Ileal wall edema, may reflect infectious or inflammatory enteritis. Patient was seen by surgery and did not have signs or symptoms consistent with intussusception. Patient did however have signs of gastroenteritis. He was given IV fluids and Zofran which helped with his symptoms. He was also started on antibiotics for leukocytosis. Due to the patient most likely having a viral gastroenteritis antibiotics were stopped with repeat CBC without leukocytosis. Patient is stable and ready to discharge home. Patient agrees with plan. Status at Discharge Functional status at discharge: independent ambulation Time Spent with Patient Time attestation: Total time spent providing and/or coordinating discharge services: Time spent: Greater than 30 minutes Exam Narrative: General: well appearing, appears stated age. HEENT: normocephalic, atraumatic. Mucous membranes moist. EOMI, PERRLA, bilateral sclera anicteric, no conjunctival injection. Neck supple without JVD, lymphadenopathy, or bruit. Respiratory: clear to ascultation bilaterally. No rales/rhonic/wheezes. Cardiovascular: Regular rate and rhythm, normal S1-S2 upon ascultation. No murmurs, rubs, or clicks. PMI is nondisplaced, capillary refill less than 3 second. Abdomen: Soft, round, no pulsatile masses, nondistended and nontender. No rebound, no guarding. No CVA tenderness, no hepatosplenomegaly. Bowel sounds present to all four quadrants. No high pitch or tinkling sounds, resonant to percussion. Extremities: No cyanosis, clubbing, or edema present. Pulses are palpable 2/2. Active ROM to all four extremities. Neuro: Alert and orientated x 4. PERRLA. Cranial nerves 2-12 intact without focal deficit. Skin: Warm, dry, and intact, without rash, erythema, or lesion. Psych: pleasant, cooperative, normal speech, normal affect, no hallucinations, no dysarthia DS: Data Data Completed and Pending Labs on day of discharge: Labs from last 24 hours 10/03/24 10/02/24 13:58 18:18 WBC 8.3 RBC 4.60 Hgb 13.1 L Hct 39.6 L MCV 86.1 MCH 28.5 MCHC 33.1 RDW 13.2 Plt Count 290 MPV 10.4 Influenza A (RT-PCR) Negative Influenza B (RT-PCR) Negative SARS-CoV-2 RNA (RT-PCR) Negative Discharge Plan Discharge Consulting providers: Ira Nelson Discharging Clinician: Chante Hartley Anticipated Discharge Date/Time: 10/03/24 15:44 Patient Disposition: Home Activity: may shower Diet: regular Discharge Instructions: Discharge instructions: Take medications as prescribed You are not going home with any new medications You are activity as tolerated Avoid social areas, you wear a mask when in social settings Encouraged to continue with yearly vaccinations Return to the emergency department if he developed sudden shortness of breath, chest pain, nausea, vomiting, upset stomach or intractable diarrhea Return to the emergency department if you develop fever greater than 101.5 Follow-up with: Your primary care physician within 1-2 weeks for post hospitalization check up Thank you for [facility] for your healthcare needs Patient Instructions: Antibiotic Form, Acute Nausea and Vomiting (DC) Patient Language: Pashto Stand Alone Forms: General Discharge Information Follow-up/Referrals: Tor,MD Gideon [Primary Care Provider] - 2 Weeks Discharge Medications: Continued atorvastatin 40 mg tablet 40 mg PO QPM cetirizine 10 mg tablet 10 mg PO DAILY citalopram 40 mg tablet 40 mg PO DAILY guanfacine 1 mg tablet 1 mg PO Q12H mirtazapine 15 mg tablet 15 mg PO HS omeprazole 20 mg capsule,delayed release(DR/EC) 20 mg PO QAM quetiapine 100 mg tablet 100 mg PO HS lamotrigine 25 mg tablet 50 mg PO QAM Date of admission: 10/02/24 03:07 Primary Care Provider: TorGideon Admitting Provider: Lola Cano Attending physician on admission: Taco Lopez Condition: Stable Quality VTE Prophylaxis VTE prophylaxis: pharmacologic ordered Hospitalist MIPS Heart Failure (Exclusion) Patient has history of Heart Transplant or Left Ventricular Assistive Device?: No IF YES, STOP HERE Heart Failure (Qualifier) Patient has current or prior documentation of LVEF less than or equal to 40%, or mod/servere depressed LVSF?: No IF NO, STOP HERE
== END 2024-10-03 18:18 | disposition home or self-care (01) ==
PROVIDERS: Nurse Practitioner Family; Nurse Practitioner Gerontology; Admitting Provider Internal Medicine; PCP Family Medicine; Visit Provider Physician Assistant
DX: A41.9 Sepsis, unspecified organism (principal); K52.9 Noninfective gastroenteritis and colitis, unspecified; N39.0 Urinary tract infection, site not specified; R00.0 Tachycardia, unspecified; R07.2 Precordial pain; F41.9 Anxiety disorder, unspecified; F32.A Depression, unspecified; R79.1 Abnormal coagulation profile; Z20.822 Contact with and (suspected) exposure to COVID-19; Z79.899 Other long term (current) drug therapy
CPT/HCPCS: 36415; 71045; 71275; 80048; 84484; 85025; 85027; 85380; 87086; 87636; 93005; 93970; 96361; 96365; 96366; 96367; 96372; 96375; 96376; A9270; G0378; G0379; J0696; J1650; J1836; J2270; J7030; Q9967

== ENCOUNTER 2025-01-24 08:03 | Outpatient (CLI) | payer OTHER, SELFPAY ==
--- NOTE | ~2025-01-24 | US_ITS ---
EXAMINATION: US Abdomen Complete INDICATION: Elevated liver enzymes PROCEDURE: Realtime High Resolution abdomen ultrasound. COMPARISON: No prior studies for comparison FINDINGS: Visualized pancreas is unremarkable. The liver is hyperechoic likely due to fatty infiltration or hepatocellular disease. Portal vein flow is hepatopedal. No sonographic Orellana's sign. Common duct measures 2 mm. Spleen is not enlarged and measures 11.1 cm in greatest dimension. Right kidney measures 11.8 x 4.8 x 5.7 cm. Left kidney measures 11.3 x 5.1 x 5.3 cm. No renal mass or renal cyst identified. Visualized aorta is not aneurysmal. IMPRESSION: 1: The liver is hyperechoic likely due to fatty infiltration and/or hepatocellular disease. Consider a CT or MRI of the liver for further assessment 2. Otherwise, unremarkable study. Reviewed, dictated and finalized at location A. IMPRESSION: 1: The liver is hyperechoic likely due to fatty infiltration and/or hepatocellu lar disease. Consider a CT or MRI of the liver for further assessment 2. Otherwise, unremarkable study.
--- OUTSIDE RECORDS SUMMARY | 2025-01-24 08:18 | XMS_ITS | Clinical Summary ---
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
--- OUTSIDE RECORDS SUMMARY | 2025-01-24 08:18 | XMS_ITS | Patient Health Record ---
Author Organization [facility] ideeli Address [address] [facility] [address] [place] [address] Support Name Relationship Address Phone Jesse Garcia Guarantor Unknown [phone] Reason For Referral No Information Medications Medication SIG (Take, Route, Frequency, Duration) Notes Start Date End Date Status traZODone HCl 50 MG take 1 tablet (50MG) by oral route every day at bedtime Oral ([facility]) Active Citalopram Hydrobromide 20 MG take 1.5 Tablet (30MG) by oral route every morning Oral ([facility]) Active QUEtiapine Fumarate 200 MG take 1 tablet (200MG) by oral route every day at bedtime Oral ([facility]) Active Orapred 15 MG/5ML Milliliter take 2 teaspoon by Oral route every 12 hours for 5 days Oral ([facility]) 05/05/2012 Active guanFACINE HCl 1 MG take 1 tablet (1MG) by oral route 3 times every day Oral ([facility]) Active Focalin XR 20 MG take 1 capsule (20MG ) by oral route every day in the morning Oral ([facility]) Active Immunizations Vaccine Route Administration Date Status Comme nts Non VFC Engerix B-Peds Unknown 2001 Administered Status:Completed Non VFC Engerix B-Peds Unknown 2001 Administered Status:Completed Non VFC Engerix B-Peds Unknown 07/24/2002 Administered Status:Completed Non-VFC MMR II Unknown 07/24/2002 Administered Status:C ompleted Non-VFC MMR II Unknown 10/25/2006 Administered Status:C ompleted Pneumococcal conjugate PCV 7 Unknown 07/24/2002 Administered Status:Completed VFC Daptacel Unknown 2001 Administered Status:Com pleted VFC Daptacel Unknown 2001 Administered Status:Com pleted VFC Daptacel Unknown 02/02/2002 Administered Status:Com pleted VFC Daptacel Unknown 07/24/2002 Administered Status:Com pleted VFC Daptacel Unknown 10/25/2006 Administered Status:Com pleted VFC IPV Unknown 2001 Administered Status:Compl eted VFC IPV Unknown 2001 Administered Status:Compl eted VFC IPV Unknown 02/02/2002 Administered Status:Compl eted VFC IPV Unknown 10/25/2006 Administered Status:Compl eted VFC Varivax Unknown 07/24/2002 Administered Status:Comp leted VFC Varivax Unknown 03/23/2011 Administered Status:Comp leted X Hiberix Unknown 2001 Administered Status:Compl eted X Hiberix Unknown 2001 Administered Status:Compl eted X Hiberix Unknown 07/24/2002 Administered Status:Compl eted Social History Social History [facility] Social Info Question Answer Notes Household/Enviromental Risk Factors: Any Patient/Famil y Concerns : No Do you have any social/cultu ral characteristics? Social Characteristics: Yes Highest level of education: Graduated High School Concerns with daily living situations: None Support from family/friends: Yes Participation in community activities: No Cultural Characteristics: No Communication Barriers Are: None Assessment of Health Literacy Understands how to take medication Yes Understands risks/side effects of medication Yes Drugs/Alcohol: Social Info Question Answer Notes Caffeine Intake: more than 4 cups per day Tea Plan Of Treatment No Information Medical (General) History Surgical History Surgery Date(Month/Year) Circumcision 2001 Adenoidectomy 2009 Tonsillectomy 2009
== END 2025-01-24 08:04 | disposition home or self-care (01) ==
LOC: CHSIMG 08:05
PROVIDERS: PCP Family Medicine; Visit Provider Registered Nurse
DX: R79.89 Other specified abnormal findings of blood chemistry (principal)
CPT/HCPCS: 76700

== ENCOUNTER 2025-02-14 13:13 | Outpatient (CLI) | payer OTHER, SELFPAY ==
--- NOTE | ~2025-02-14 | MR_ITS ---
EXAMINATION: MR abdomen wo/w con DATE: 02/14/2025 15:04 INDICATION: Abnormal liver function tests. TECHNIQUE: Magnetic resonance imaging (MRI) of the abdomen was performed without and with 20 mL MultiHance intravenous contrast. COMPARISON: Abdomen ultrasound 01/24/2025, CT abdomen and pelvis 10/01/2024 FINDINGS: There is diffuse hepatic steatosis. The gallbladder, spleen, pancreas, adrenal glands, and right kidney are normal. There is a 4 mm cyst in left kidney. There are no dilated loops of bowel. There are no pathologically enlarged lymph nodes. There is no free intraperitoneal fluid. IMPRESSION: 1. Diffuse hepatic steatosis. Reviewed, dictated and finalized at location E.
--- OUTSIDE RECORDS SUMMARY | 2025-02-14 14:58 | XMS_ITS | Patient Health Record ---
Author Organization [facility] Address [address] [place] [address] Support Name Relationship Address Phone Jesse Garcia Guarantor Unknown [phone] Reason For Referral No Information Medications Medication SIG (Take, Route, Frequency, Duration) Notes Start Date End Date Status traZODone HCl 50 MG take 1 tablet (50MG) by oral route every day at bedtime Oral ([facility]) Active Citalopram Hydrobromide 20 MG take 1.5 Tablet (30MG) by oral route every morning Oral ([facility]) Active QUEtiapine Fumarate 200 MG take 1 tablet (200MG) by oral route every day at bedtime Oral ([facility]) Active Orapred 15 MG/5ML Milliliter take 2 teaspoon by Oral route every 12 hours for 5 days Oral ([facility]) 05/05/2012 Active guanFACINE HCl 1 MG take 1 tablet (1MG) by oral route 3 times every day Oral ([facility]) Active Focalin XR 20 MG take 1 capsule (20MG ) by oral route every day in the morning Oral ([facility]) Active Immunizations Vaccine Route Administration [...] Administered Status:Compl eted Social History Social History [facility] Social Info Question Answer Notes Household/Enviromental [...]
== END 2025-02-14 13:14 | disposition home or self-care (01) ==
PROVIDERS: PCP Family Medicine; Visit Provider Registered Nurse
DX: R79.89 Other specified abnormal findings of blood chemistry (principal); K76.0 Fatty (change of) liver, not elsewhere classified
CPT/HCPCS: 74183; A9577